=== PATIENT | male | born 1990 | race Caucasian/White ===

== ENCOUNTER 2017-12-23 18:04 | Emergency (ER) | payer SELFPAY ==
[2017-12-23 18:28] LABS: PLATELET COUNT, AUTOMATED 386 K/uL (150-450)
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
[2017-12-23 18:33] LABS: INR 1.03
[2017-12-23] MEDS ORDERED: ONDANSETRON 4 MG/2 ML VIAL IVP ONE (18:50)
[2017-12-23] MEDS ORDERED: MORPHINE 2 MG/ML SYR IVP ONE ×2 (19:15→19:40)
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
[2017-12-23] MEDS ORDERED: DIPHTH/TETANUS/ACEL. PERTUSSIS IM ONLY ONE (19:40)
[2017-12-23] MEDS ORDERED: NS(*) 0.9% 1000 ML BAG 1,000 ML IV ONE (19:40)
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
[2017-12-23] MEDS ORDERED: ceFAZolin 1 GM VIAL IVP ONE (20:25)
[2017-12-23] MEDS ORDERED: NS(*) 0.9% 100 ML ADDVANT BAG 100 ML ONE (20:30)
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
[2017-12-23] MEDS ORDERED: fentaNYL CITR 100 MCG/2 ML AMP IVP ONE (20:40)
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
[2017-12-23 21:30] VITALS: BP 103/48
== END 2017-12-23 21:52 | disposition short-term general hospital (02) ==
LOC: ER 18:12
DX: S02.91XA Unspecified fracture of skull, initial encounter for closed fracture (principal); S06.6X1A Traumatic subarachnoid hemorrhage with loss of consciousness of 30 minutes or less, initial encounter; R40.2412 Glasgow coma scale score 13-15, at arrival to emergency department; S40.211A Abrasion of right shoulder, initial encounter; S30.810A Abrasion of lower back and pelvis, initial encounter; S70.211A Abrasion, right hip, initial encounter; V86.56XA Driver of dirt bike or motor/cross bike injured in nontraffic accident, initial encounter; Y92.838 Other recreation area as the place of occurrence of the external cause; Y99.8 Other external cause status; Z23 Encounter for immunization
CPT/HCPCS: 12004; 70450; 71045; 72072; 72120; 72125; 72170; 73030; 80305; 80320; 81001; 85025; 85610; 85730; 90471; 90715; 96361; 96374; 96375; 99285; J0690; J2270; J2405; J3010; J7030; L0172; 82040; 82247; 82310; 82374; 82435; 82565; 82947; 84075; 84132; 84155; 84295; 84450; 84460; 84520; 99282

== ENCOUNTER → 2017-12-23 | Outpatient (CLI) | payer SELFPAY | LOC: AMB 21:35 | PROVIDERS: ATTEND Nurse Practitioner | DX: S02.91XB Unspecified fracture of skull, initial encounter for open fracture (principal); S06.5X9A Traumatic subdural hemorrhage with loss of consciousness of unspecified duration, initial encounter; V29.9XXA Motorcycle rider (driver) (passenger) injured in unspecified traffic accident, initial encounter | CPT/HCPCS: A0425; A0426 ==

== ENCOUNTER 2018-01-10 11:33 | Emergency (ER) | payer SELFPAY ==
--- NOTE | 2018-01-10 12:00 | ER Report ---
History and Physical Time Seen By MD: 11:44 Hx. of Stated Complaint: NEEDS NICKI REMOVED. HPI/ROS CHIEF COMPLAINT: Laceration, staple removal. HISTORY OF PRESENT ILLNESS: The patient returns to the ED for staple removal. There have been no problems and no symptoms of infection. The laceration was on the scalp. Nicki have been in place for 14 days. Allergies: Coded Allergies: No Known Drug Allergies (Unverified , 01/10/18) Home Meds No Active Prescriptions or Reported Meds Past Medical/Surgical History Patient has a past medical history of subarachnoid bleed, skull fracture, pneumothorax. Reviewed Nurses Notes: Yes Constitutional Vital Sign - Last 24 Hours 01/10/18 11:36 Temp 98.8 Pulse 89 Resp 16 B/P (MAP) 137/75 Pulse Ox 94 O2 Delivery Room Air Physical Exam General appearance: alert no distress Skin: The laceration of the scalp is well healing and appears to have no evidence of infection. MEDICAL DECISION MAKING: I removed the nicki. Following removal there was no dehiscence of the wound. Medical Decision Making ED Course/Re-evaluation ED Course Patient was admitted and examined, history and physical were obtained. Differential diagnoses were considered. On examination patient has 15 nicki located in the scalp. Edges are well proximal October, there is no discharge. Nicki removed without any difficulties. Patient will be discharged home at this time. He states the area clean, he is to monitor for signs of infection. He soon returned to the emergency room with any concerns. Patient verbalized understanding and agreement. Decision to Disposition Date: Jan 10, 2018 Decision to Disposition Time: 12:02 Depart Departure Latest Vital Signs Vital Signs Date Time Temp Pulse Resp B/P (MAP) Pulse Ox O2 Delivery O2 Flow Rate FiO2 01/10/18 11:36 98.8 89 16 137/75 94 Room Air Impression: Primary Impression: Encounter for staple removal Condition: Improved Disposition: HOME OR SELF-CARE New Scripts No Active Prescriptions or Reported Meds Departure Forms: Medications Reconciliation, Patient Portal Information, ER Transition Record Patient Instructions: GENERAL ER DISCHARGE INSTRUCTIONS Additional Instructions: Keep area clean. Limit activity by pain. Monitor for signs of infection; redness, swelling heat or discharge. ARNOLD HUBER Jan 10, 2018 12:00
[2018-01-10 12:08] VITALS: BP 132/71
== END 2018-01-10 12:08 | disposition home or self-care (01) ==
LOC: ER 11:37
DX: S01.01XD Laceration without foreign body of scalp, subsequent encounter (principal)
CPT/HCPCS: 99281